=== PATIENT | female | born 1980 | race Two or more races ===

== ENCOUNTER 2022-07-10 05:23 | Emergency (ER) | payer SELFPAY ==
[~2022-07-10] VITALS: Ht 154.9 cm; Wt 77.0 kg
[2022-07-10 06:05] VITALS: BP 95/58
== END 2022-07-10 11:26 | disposition home or self-care (01) ==
LOC: ER 05:23
DX: T16.1XXA Foreign body in right ear, initial encounter (principal); M79.5 Residual foreign body in soft tissue; X58.XXXA Exposure to other specified factors, initial encounter; Y93.84 Activity, sleeping; Y92.013 Bedroom of single-family (private) house as the place of occurrence of the external cause
CPT/HCPCS: 69200; 99281; 99284